=== PATIENT | female | born 1950 | race Caucasian/White ===

== ENCOUNTER → 2016-08-03 | Outpatient (CLI) | payer OTHER ==
[~2016-08-03] MED LIST: ASPI-496 PO; CLON-364 PO; CLON0.2T PO; FLUP1TAB PO; HYDR25TA6 PO; IBUP200T5 PO; MOEX15TA2 PO; MULT-516 PO; OMEG1CAP23 PO; TRAZ150T68 PO
== END | disposition home or self-care (01) ==
LOC: CFH 09:16
PROVIDERS: ATTEND Internal Medicine
DX: Z12.31 Encounter for screening mammogram for malignant neoplasm of breast (principal); Z80.3 Family history of malignant neoplasm of breast
CPT/HCPCS: G0202

== ENCOUNTER → 2017-08-07 | Outpatient (CLI) | payer OTHER ==
[~2017-08-07] MED LIST changes: +IBUP-1484 PO; -IBUP200T5 PO; +TRAZ150T62 PO; -TRAZ150T68 PO
== END | disposition home or self-care (01) ==
LOC: CFH 10:52
DX: Z12.2 Encounter for screening for malignant neoplasm of respiratory organs (principal); Z12.31 Encounter for screening mammogram for malignant neoplasm of breast; Z13.820 Encounter for screening for osteoporosis; D35.02 Benign neoplasm of left adrenal gland; N95.9 Unspecified menopausal and perimenopausal disorder; F17.200 Nicotine dependence, unspecified, uncomplicated
CPT/HCPCS: 77067; 77080; G0297

== ENCOUNTER 2018-08-23 10:36 | Outpatient (CLI) | payer MEDICARE, OTHER ==
[~2018-08-23 10:36] MED LIST changes: -CLON-364 PO; +CLON0.5T11 PO
== END 2018-08-23 23:59 | disposition home or self-care (01) ==
LOC: CFH 10:36
PROVIDERS: ATTEND Internal Medicine
DX: Z12.31 Encounter for screening mammogram for malignant neoplasm of breast (principal)
CPT/HCPCS: 77067